=== PATIENT | female | born 1955 | race African-American/Black ===

== ENCOUNTER 2018-06-08 07:47 | Inpatient (IN) ==
--- NOTE | 2018-06-08 08:26 | PROVIDER DOCUMENTATION ---
HPI-Respiratory General - General Chief Complaint: Shortness of Breath Stated Complaint: SOB Time Seen by Provider: 06/08/18 08:09 Source: patient Allergies/Adverse Reactions: Patient Allergies Allergy/AdvReac Type Severity Reaction Status Date / Time No Known Allergies Allergy Verified 08/27/17 11:59 Home Medications: Home Medication List Medication Instructions Recorded Confirmed Last Taken Type Allopurinol [Zyloprim] 100 mg PO BID 08/09/13 05/19/18 08/26/17 16:00 History 100 Insulin Humulin 70/30 [Humulin 15 unit SUBQ BID 08/09/13 05/19/18 08/25/17 History 70/30] 15 Amlodipine [Norvasc] 10 mg PO DAILY 01/19/14 05/19/18 08/26/17 07:00 History 10 Aspirin [Ecotrin] 81 mg PO BID 12/13/15 05/19/18 08/22/17 History Sennosides/Docusate Sodium 1 each PO DAILY 01/22/18 05/19/18 Unknown History [Pericolace] Sodium Bicarbonate 650 mg PO BID 01/22/18 05/19/18 Unknown History D-Methorphan/P-Epd/Bpm [Bromfed Dm 5 ml PO Q4H PRN #120 ml 04/20/18 05/19/18 Unknown Rx Liquid] Clonidine [Catapres] 0.3 mg PO BID 05/19/18 05/19/18 Unknown History Simvastatin 30 mg PO QHS 05/19/18 05/19/18 Unknown History Hydralazine [Apresoline] 100 mg PO TID #90 tab 05/22/18 Unknown Rx Metoprolol Succinate [Toprol Xl] 25 mg PO DAILY #30 tab.er.24h 05/22/18 Unknown Rx - History of Present Illness-Resp Quality of Pain: reports: none Severity in ED: reports: moderate Onset/Duration: reports: gradual, 1 week ago Timing: reports: still present Context: denies: recent foreign travel, insect bite (possible tick), recent chemotherapy Exposure: denies: smoke exposure Cough Quality/Degree: reports: dry cough Similar Symptoms Previously?: Yes Recently seen or treated by another doctor?: Yes (RECENT ADMITTED FOR RESPIRATORY INFECTION) Review of Systems - Adult - REVIEW OF SYSTEMS - ADULT Constitutional: denies: fever, night sweats Eyes: reports: no symptoms reported Ears, Nose, Mouth & Throat: reports: no symptoms reported Cardiovascular: reports: heart murmur, orthopnea Respiratory: reports: shortness of breath. denies: wheezing Gastrointestinal: reports: no symptoms reported Genitourinary: reports: no symptoms reported Musculoskeletal: reports: no symptoms reported Integumentary: reports: no symptoms reported Neurological: reports: no symptoms reported Psychiatric: reports: no symptoms reported Endocrine: reports: no symptoms reported Hematologic/Lymphatic: reports: no symptoms reported Allergic/Immunologic: reports: no symptoms reported Past History - Adult - PAST MEDICAL HISTORY-ADULT Review of Records: reports: Nursing Assessment Review Major Childhood Illnesses: reports: denies history Cardiovascular: reports: CHF, HTN Respiratory: reports: denies history Gastrointestinal: reports: denies history Obstetrical/Gynecological: reports: denies history Genitourinary: reports: ESRD, kidney disease Musculoskeletal: reports: arthritis Neurological: reports: denies history Endocrine/Immune: reports: Diabetes Other Conditions: reports: denies history - PRIOR SURGERIES/PROCEDURES Surgical/Procedure History: reports: BTL - IMMUNIZATION STATUS Childhood Immunizations: See Nurse Assessment Flu Vaccine: See Nurse Assessment - FAMILY HISTORY Family History: reviewed, not pertinent Physical Exam-General - PHYSICAL EXAM-ADULT Initial Vital Signs Reviewed: Yes - CONSTITUTIONAL General Appearance: alert - EYES Eyes: PERRL/EOMI - HEAD, EARS, NOSE, MOUTH & THROAT HENMT: normocephalic/atraumatic - NECK Neck: non-tender, normal inspection - RESPIRATORY Respiratory: no respiratory distress, no accessory muscle use. negative: stridor, wheezing - CARDIOVASCULAR Cardiovascular: no JVD, systolic murmur - GASTROINTESTINAL (ABDOMEN) Abdominal Exam: non tender, soft - LYMPHATIC Lymphatic: no adenopathy - MUSCULOSKELETAL Back Exam: no CVA tenderness Extremity: pedal edema - SKIN Integumentary: warm/dry - NEUROLOGIC Neurologic: grossly normal, no motor/sensory deficits - PSYCHIATRIC Psych/Mental Status: normal mood/affect Progress - PLAN OF CARE/RESULTS Progress/Plan/Lab Results: Vital Signs - 8 hr 06/08/18 07:50 06/08/18 08:02 06/08/18 08:08 Temperature 97.8 F Pulse Rate 79 75 Respiratory Rate 28 H 28 H Blood Pressure 136/109 207/103 O2 Sat by Pulse Oximetry 91 L 92 L Laboratory Results - last 24 hr 0106/08/18 06/08/18 08:40 09:00 09:00 WBC RBC Hgb Hct MCV MCH MCHC RDW Std Deviation Plt Count MPV Immature Gran % (Auto) Neut % (Auto) Lymph % (Auto) Livingston % (Auto) Eos % (Auto) Baso % (Auto) Immature Gran # (Auto) Neut # (Auto) Lymph # (Auto) Livingston # (Auto) Eos # (Auto) Baso # (Auto) Specimen Type ARTERIAL Sample Site R RADIAL pH 7.29 L pCO2 47 H pO2 86 HCO3 21.8 Base Excess -3.9 L Oxyhemoglobin 93.1 L ABG O2 Sat (Calculated) 12.0 L ABG O2 Saturation 95.1 ABG Carboxyhemoglobin 1.30 ABG Methemoglobin 0.7 Andrews Test YES A-a O2 Difference 83.0 Total Hemoglobin 9.1 L Lactate 0.50 Liter Flow 3.0 Blood Gas Modality CANNULA FiO2 % 32.0 Sodium 144 Potassium 5.5 H Chloride 113 H Carbon Dioxide 20 L Anion Gap 11 BUN 55 H Creatinine 4.0 H Estimated GFR/1.73 m2 11 BUN/Creatinine Ratio 14 Glucose 156 H Calculated Osmolality 305 Calcium 9.3 Total Bilirubin 0.40 AST 30 ALT 42 H Alkaline Phosphatase 162 H Lkp-[id number]-Dsqcaujhrls Pept 1896 H Total Protein 7.3 Albumin 3.7 Globulin 4.0 Albumin/Globulin Ratio 1.0 Plasma Lactate 06/08/18 06/08/18 09:00 09:25 WBC 9.57 RBC 2.97 L Hgb 8.6 L Hct 28.3 L MCV 95.3 MCH 29.0 MCHC 30.4 L RDW Std Deviation 17.3 H Plt Count 241 MPV 9.5 Immature Gran % (Auto) 0.5 Neut % (Auto) 79.0 H Lymph % (Auto) 14.6 L Livingston % (Auto) 3.1 Eos % (Auto) 2.7 Baso % (Auto) 0.1 Immature Gran # (Auto) 0.05 H Neut # (Auto) 7.55 H Lymph # (Auto) 1.40 Livingston # (Auto) 0.30 Eos # (Auto) 0.26 Baso # (Auto) 0.01 Specimen Type Sample Site pH pCO2 pO2 HCO3 Base Excess Oxyhemoglobin ABG O2 Sat (Calculated) ABG O2 Saturation ABG Carboxyhemoglobin ABG Methemoglobin Andrews Test A-a O2 Difference Total Hemoglobin Lactate Liter Flow Blood Gas Modality FiO2 % Sodium Potassium Chloride Carbon Dioxide Anion Gap BUN Creatinine Estimated GFR/1.73 m2 BUN/Creatinine Ratio Glucose Calculated Osmolality Calcium Total Bilirubin AST ALT Alkaline Phosphatase [id number] Pept Total Protein Albumin Globulin Albumin/Globulin Ratio Plasma Lactate 0.9 Orders Category Date Time Status Saline Loc NOW Care 06/08/18 08:21 Active CHEST-2 VIEWS [RAD] Stat Exams 06/08/18 08:21 Completed ABG [RESP] Routine Lab 06/08/18 08:40 Completed BLOOD CULTURE [BLDCUL] Stat Lab 06/08/18 09:00 Ordered CBC WITH DIFF [HEME] Stat Lab 06/08/18 09:00 Completed COMPREHENSIVE METABOLIC PANEL [CHEM] Stat Lab 06/08/18 09:00 Completed LACTATE, PLASMA [CHEM] Stat Lab 06/08/18 09:25 Completed PRO B-NATRIURETIC PEPTIDE Stat Lab 06/08/18 09:00 Completed Furosemide [Lasix] Med 06/08/18 10:17 Discontinued 20 mg IV NOW ONE Pulse Oximetry Stat Oth 06/08/18 08:21 Active Result Diagrams: 06/08/18 09:00 06/08/18 09:00 - CONSULTS/PCP/HOSPITALIST Notification #1 *Consult/PCP/Hospitalist*: Dr Salvador Time Discussed: 10:14 Consult Disposition: other (Dr Salvador wanted patient to go to [place], he will follow up with patient) #2 Consult: angelica Time Discussed: 10:34 Reason/Comments: accepted patient to [place] Departure - Departure Date of Disposition Decision: 06/08/18 Time of Disposition Decision: 10:17 DIAGNOSIS: CHF (congestive heart failure), Kidney disease, chronic, stage IV (GFR 15-29 ml /min), Dyspnea, Hypoxia Disposition: ADMITTED INPATIENT 09 Certified Medical Emergency: Emergent Condition: Fair Referrals and Follow-Ups: Deuce Laurent MD [Primary Care Provider] - - Critical Care Note This patient required my direct & personal management of CC.: No Attestation - Physician/ LUCAS Attestation Patient care was provided by Advanced Practice Provider:: No The physician spent face to face time with patient:: Yes Advanced Practice Provider documentation review:: Supervising physician onsite and consulted in the evaluation and care of this patient. The physician did have a face to face encounter with the patient.
--- NOTE | 2018-06-08 08:47 | Diag Imaging Result Doc PS360 ---
EXAM: CHEST-2 VIEWS HISTORY: cough TECHNIQUE: Chest two views COMPARISON: 05/18/2018 FINDINGS: The lungs are well expanded. The heart remains markedly enlarged. Interval development of infiltrates with a tiny right pleural effusion. No consolidation. IMPRESSION: 1.Stable marked cardiomegaly 2.Interval development of infiltrates Electronically signed by Alen Rosen 06/08/2018 8:44 AM
[2018-06-08 09:07] LABS: BE -3.9 mmoll (-3.0-3.0); BLOOD TYPE ARTERIAL; HCO3-(ACT) 21.8 mmoll (20.0-26.0); METHB 0.7 % (0.0-1.5); O2HB 93.1 % (95.0-99.0); PCO2(98.6) 47 mmHg (35-45); PO2(98.6) 86 mmHg (60-100); SAMPLE BLOOD; SAO2 95.1 % (95.0-100.0); THB 9.1 g/dL (11.5-17.4); pH(98.6) 7.29 (7.35-7.45)
[2018-06-08 09:09] LABS: MODALITY CANNULA
[2018-06-08 09:10] LABS: ALLEN TEST YES
[2018-06-08 09:14] LABS: BASO# 0.01 X1000 (0.0-0.2); BASO% 0.1 % (0.0-0.8); EOS# 0.26 X1000 (0.0-0.7); EOS% 2.7 % (0.0-10.0); HEMATOCRIT 28.3 % (37.0-47.0); HEMOGLOBIN 8.6 g/dL (12.0-16.0); IMM GRAN# 0.05 X1000 (0.0-0.04); IMM GRAN% 0.5 % (0.0-0.5); LYMPH% 14.6 % (20.5-51.1); MCHC 30.4 g/dL (33-37); MCV 95.3 FL (81-99); MONO% 3.1 % (1.7-9.3); MPV 9.5 FL (7.4-10.4); NEUT# 7.55 X1000 (1.4-6.5); PLT 241 X1000 (130-400); RBC 2.97 XMIL (4.2-5.4); RDW 17.3 % (11.5-14.5); WBC 9.57 X1000 (4.8-10.8)
[2018-06-08 09:52] LABS: ALBUMIN 3.7 g/dL (3.5-5.0); CALCIUM 9.3 mg/dL (8.8-10.2); POTASSIUM 5.5 mmol/L (3.5-5.1); TOTAL BILIRUBIN 0.4 mg/dL (0.20-1.00); TOTAL PROTEIN 7.3 g/dL (6.3-8.3)
[2018-06-08] MEDS ORDERED: LASIX IV ONE ×2 (10:17→12:01)
--- NOTE | 2018-06-08 12:48 | HISTORY AND PHYSICAL ---
CHIEF COMPLAINT: Shortness of breath. HISTORY OF PRESENT ILLNESS: This is a 63-year-old female who has a history of chronic kidney disease with a baseline creatinine of 3.5 to 4, diabetes mellitus type 2, hypertension, and anemia of chronic disease. She presents to the emergency room complaining of increasing shortness of breath and lower extremity edema over the past 2 to 3 weeks. She states she was discharged from the hospital on May 22. At this time she states she has not had Lasix since discharge. She stated that symptoms began 4 to 5 days after discharge and have slowly progressed. She does complain she has a nonproductive cough. She denies any chest pain, palpitations, any fever or chills. She does report 45 degree orthopnea over the last 2 to 3 days. PAST MEDICAL HISTORY: 1. Chronic kidney disease stage 4. 2. Diabetes mellitus type 2. 3. Hypertension. 4. Anemia of chronic disease. PAST SURGICAL HISTORY: Left arm AV shunt placement and bilateral tubal ligation. SOCIAL HISTORY: She lives with family. She denies any alcohol, tobacco, or illicit drug use. ALLERGIES: No known drug allergies. HOME MEDICATIONS: A list will be obtained by the nursing staff and once verified we will review and restart as appropriate. REVIEW OF SYSTEMS: Discussed with patient with pertinent positives stated in the HPI. She denied any syncope, dizziness, chest pain, palpitations, a productive cough, any fever, chills, night sweats, any nausea, vomiting, diarrhea, constipation, black or bloody vomitus or stools, any hematuria, dysuria, frequency, urgency. PHYSICAL EXAMINATION: GENERAL: This is a 63-year-old female who is sitting up on the stretcher in the emergency room in no distress. VITAL SIGNS: Blood pressure is 186/92 with a heart rate of 68, respirations are 20. O2 saturation are 96-98% on 2 L nasal cannula. Temperature is 98.1 degrees oral. EYES: Pupils are equal, round, react to light. EOMs are intact. Sclerae are anicteric. HEENT: Head is normocephalic, atraumatic. Mucous membranes are moist. NECK: Supple with trachea midline. CARDIOVASCULAR: Regular rate and rhythm. S1 and S2 appreciated. She does have bilateral lower extremity edema from about midthigh down. Of note she does have a history lymphadenopathy. PULMONARY: Breath sounds with wheezes scattered throughout. Chest rises and falls symmetrically with respiration. GASTROINTESTINAL: Abdomen is soft, nontender, nondistended with bowel sounds in all 4 quadrants. GENITOURINARY: She has no CVA nor suprapubic tenderness. NEUROLOGIC: She is alert oriented x3. LABS: WBC is 9.5 with hemoglobin 8.6, hematocrit 28.3, and platelets of 241,000. Sodium 144, potassium 5.5, BUN is 55, with creatinine of 4 and glucose of 156. ProBNP is 1896. Blood cultures x 2 are pending. Chest x-ray revealed stable marked cardiomegaly with interval development of infiltrate. ASSESSMENT AND PLAN: 1. Dyspnea. 2. Chronic kidney disease stage 4 with a baseline creatinine of 3.5 to 4. She has a left arm AV shunt in place with bruit audible and thrill palpable. 3. Volume overload. The patient has been off her Lasix for approximately 3 weeks. We will give IV Lasix, monitor I O and will consult Dr. Sevilla. 4. Diabetes mellitus. She will be placed on pattern blood glucose with sliding scale insulin. We will identify her home medications and continue these as appropriate. 5. Hypertension. We will continue with diuresis. We will identify her home medications and continue. 6. Anemia of chronic disease. We will monitor daily labs. Dictated by JA Garcia for Jackson Jacome MD This chart was documented by, JA Garcia and accurately reflects the services performed, treatment plan and medical decisions as attested by the providers signature Jackson Jacome MD. cc: JA Garcia MD
[2018-06-08] MEDS ORDERED: ZOFRAN IV PRN (14:54)
--- NOTE | 2018-06-08 15:24 | HISTORY AND PHYSICAL ---
The patient was seen by me face to face and I fully agree with the assessment/plan of the nurse practitioner Harika Meade. This is a 63-year-old female patient of Dr. Deuce Laurent who presented to the emergency department with dyspnea and has been diagnosed as having stage 4 chronic kidney disease. She already has a left arm AV graft in place for anticipated hemodialysis. Dr. Sevilla has been consulted and he wants patient to be transferred to [facility] for further inpatient care. The patient has diabetes and hypertension along with anemia secondary to chronic kidney disease. She appears to be having volume overload and would need to be diuresed and possibly have inpatient hemodialysis if needed. Further care will be provided as per Dr. Sevilla. She therefore will be transferred to [facility] for further multispecialty care. cc: Jackson Jacome MD
[2018-06-08] MEDS: HUMALOG SUBQ SCH ×2 (16:30→20:57)
[2018-06-08 16:45] LABS: URINE SOURCE VOIDED
[2018-06-08 16:51] LABS: BILIRUBIN URINE NEGATIVE (NEGATIVE); BLOOD URINE TRACE (NEGATIVE); COLOR STRAW; GLUCOSE URINE NEGATIVE (NEGATIVE); KETONE URINE NEGATIVE (NEGATIVE); LEUKOCYTES URINE NEGATIVE (NEGATIVE); NITRITE URINE NEGATIVE (NEGATIVE); PH URINE 6.5; PROTEIN URINE 100 mg/dL (NEGATIVE); TURBIDITY URINE CLEAR (CLEAR); UR EPITHELIAL CELLS <10 /HPF (<10); URINE BACTERIA NEGATIVE /HPF; URINE RBC <10 /HPF (<10); URINE WBC <10 /HPF (<10); UROBILINOGEN URINE NORMAL (NORMAL)
[2018-06-08 16:57] LABS: UR CREAT RANDOM 19.5 mg/dL (11-20); UR PROT RANDOM 131.5 mg/dL
[2018-06-08] MEDS ORDERED: APRESOLINE PO PRN (18:54)
--- NOTE | 2018-06-08 19:31 | PROGRESS NOTE ---
DATE: 06/08/2018 SUBJECTIVE: She was admitted early this morning for shortness of breath. She is followed by Dr. Tripathi. A 63-year-old with history of chronic kidney disease. Baseline creatinine 3.5 to 4, diabetes mellitus, hypertension, anemia of chronic disease. Presented to the emergency department complaining of shortness of breath and lower extremity edema over the past 2 or 3 weeks. She had been discharged from [facility] on May 22. She states she has not had any Lasix since discharge. Symptoms began about 4 or 5 days after discharge and progressively got more short of breath. She does complain that she has a nonproductive cough. Denies any chest pain or palpitations. PAST MEDICAL HISTORY: 1. Chronic kidney disease. 2. Diabetes mellitus type 2. 3. Hypertension. 4. Anemia of chronic disease. PAST SURGICAL HISTORY: Left arm AV shunt placement, bilateral tubal ligation. ASSESSMENT AND PLAN: 1. So, admitted with dyspnea, chronic kidney disease stage 4 with baseline creatinine 3.5 to 4. She has left arm AV shunt with a bruit which is audible and thrills palpable , but presented with volume overload. She has been off her Lasix for 3 weeks. So, started back on some Lasix. Dr. Sevilla is following. 2. Diabetes mellitus type 2. Sugars continue patterned sugars sliding scale. 3. Watch her blood pressure. Blood pressures are variable at 136/109, then 203/ 73. 4. Anemia of chronic disease. 5. Reviewed orders. I will give her some p.r.n. Apresoline for blood pressure. Check another chest x-ray in the morning. cc: MD MAXIMILIANO Bloom
[2018-06-08] MEDS: CATAPRES PO SCH (20:55)
[2018-06-08] MEDS: APRESOLINE IV PRN (22:07)
[2018-06-09] MEDS: APRESOLINE IV PRN ×2 (03:51→20:27)
[2018-06-09] MEDS: HUMALOG SUBQ SCH ×3 (06:00→20:40)
[2018-06-09 07:36] LABS: HEMATOCRIT 28.8 % (37.0-47.0); HEMOGLOBIN 8.6 g/dL (12.0-16.0); MCH 28.6 PG (27-31); MCHC 29.9 g/dL (33-37); MCV 95.7 FL (81-99); MPV 10.5 FL (7.4-10.4); RBC 3.01 XMIL (4.2-5.4); WBC 7.81 X1000 (4.8-10.8)
[2018-06-09 07:57] LABS: ALBUMIN 3.5 g/dL (3.5-5.0); CALCIUM 9.3 mg/dL (8.8-10.2); CREATININE 3.4 mg/dL (0.5-0.9); PHOSPHORUS 4.8 mg/dL (2.7-4.5); POTASSIUM 5.4 mmol/L (3.5-5.1)
[2018-06-09] MEDS: TOPROL XL PO SCH (08:15)
[2018-06-09] MEDS: NORVASC PO SCH (08:15)
[2018-06-09] MEDS: APRESOLINE PO SCH ×3 (08:15→20:27)
[2018-06-09] MEDS: CATAPRES PO SCH ×2 (08:15→20:27)
--- NOTE | 2018-06-09 08:43 | Diag Imaging Result Doc PS360 ---
EXAM: CHEST-PORTABLE HISTORY: dyspnea TECHNIQUE: Portable chest single view COMPARISON: 06/08/2018 FINDINGS: The heart remains enlarged. The infiltrates are less pronounced. No consolidation. No pleural effusions identified. IMPRESSION: Mild interval improvement. Electronically signed by Alen Rosen 06/09/2018 8:41 AM
[2018-06-09] MEDS: LABETALOL IV PRN (09:59)
[2018-06-09] MEDS ORDERED: LASIX IV ONE (13:16)
[2018-06-09] MEDS ORDERED: LASIX 200 MG in NS 25 ML IV ONE (14:00)
--- NOTE | 2018-06-09 20:16 | GENERAL SURGERY CONSULTATION ---
DATE: 06/09/2018 DATE AND TIME: Date 06/09/2018, is 2:04 p.m. INDICATION: I have been asked to see Ms. Rodriguez about her left upper arm AV access. HISTORY OF PRESENT ILLNESS: She is a 63-year-old who has had chronic kidney disease, but now may have reached end stage. A fistula was placed a couple of years ago in her left upper arm. I have been asked to evaluate that. Her other medical problems Include type 2 diabetes, hypertension. PREVIOUS SURGERIES: Previous surgery includes the left upper arm fistula and a tubal ligation. SOCIAL HISTORY: She has an attentive family. Denies alcohol or tobacco usage. MEDICATIONS: Her home medications are listed. ALLERGIES: She has no known drug allergies. REVIEW OF SYSTEMS: Really quite unremarkable except for some fatigue. PHYSICAL EXAMINATION: Vital Signs: She is afebrile. Heart rate is 75, blood pressure 152/67. Lungs: Bilateral breath sounds. Heart: Regular rate and rhythm. Exam: Her left upper arm is palpated. She has a palpable thrill in the left upper arm. She has a long scar, but we mobilized the cephalic vein and translocated it to the brachial artery. ASSESSMENT: Chronic kidney disease. Her fistula in the upper arm is functional. It may not be in exactly typical position because of the size of her arm. We actually superficialized the cephalic vein and translocated it over the brachial artery. PLAN: The plan will be to image her fistula and sean it for the dialysis nurse so that they can use it if needed. cc: Eliseo Nguyen MD
[2018-06-09] MEDS: HEPARIN SUBQ SCH (20:27)
--- NOTE | 2018-06-09 21:33 | NEPHROLOGY CONSULTATION ---
DATE: 06/09/2018 REASON FOR ADMISSION: Increased work of breathing with lower extremity swelling. CONSULTING PHYSICIAN: Harika Meade NP for Dr. Jacome. REASON FOR CONSULT: Acute kidney injury with fluid volume overload on CKD stage 5. HPI: Ms. Rodriguez is a 63-year-old female who is known to our outpatient services for chronic kidney disease stage 5. Her baseline creatinine is 3.5 to about 4.5 over the last year. The patient had been referred for an AV fistula which had been placed by Dr. Nguyen to her left upper arm. She states that she is to see him in June. She presented to [facility] yesterday with increased shortness of breath and lower extremity swelling for the past 2 to 3 weeks. She had recently been discharged from the hospital on May 22 and at that time her Lasix had been stopped. She has been given Lasix 40 mg x1 with Lasix 20 mg x1 with a total of 60 yesterday prior to transfer to [facility] for further evaluation and possible dialysis. She states that she has not had any fever or chills. No nausea, vomiting or diarrhea though her appetite is poor. Positive for lower extremity swelling, positive for increased work of breathing. She does state that she has a cough though it is nonproductive. PAST MEDICAL HISTORY: Chronic kidney disease stage 4-5, diabetes mellitus type 2, hypertension, anemia of chronic disease, osteodystrophy of chronic disease. PAST SURGICAL HISTORY: Left upper arm AV fistula and bilateral tubal ligation. SOCIAL HISTORY: She lives with her family. She denies any tobacco, alcohol or illicit drug use. FAMILY HISTORY: She does have family members with hypertension, diabetes and with chronic kidney disease. CURRENT ALLERGIES: No known drug allergies . HOME MEDICATIONS: Have yet to be verified this a.m. REVIEW OF SYSTEMS: Times 10 with pertinent positives listed above in the HPI. Patient's most recent vital signs temperature 98.2 degrees, blood pressure 182/ 84, heart rate 73, respirations 18, she is on room air. Last recorded saturation 100%, she has had 0 recorded in, she has had 2400 out to void. LAB: Sodium 146, potassium 5.4, chloride 113, CO2 21, BUN 58, creatinine 3.4, glucose 122, her anion gap is 12, calcium 9.3, phosphorus 4.8, albumin 3.5, white count 7.8, hemoglobin 8.6, hematocrit 28.8, platelet count 242,000. PHYSICAL EXAM: This is a 63-year-old female. She is resting quietly in bed. Head of the bed is elevated. She is in no acute distress.Skin: Warm and dry. HEENT: Normocephalic, atraumatic. She does have positive JVD in the upright position. Lungs: Basically clear to auscultation anterior. She has faint crackle to the right lower base. She remains on room air. Abdomen: Large, obese, soft, nontender. Positive bowel sounds. Genitourinary: Not inspected. Patient has been voiding adequate amount. Extremities: She continues with 2+ lower extremity edema. Her left upper arm AV fistula has poor palpable thrill with decreased bruit, dry and intact, well-approximated. No clubbing or cyanosis present to lower extremities. Neurological: She is alert and oriented x3. ASSESSMENT AND PLAN: 1. Acute kidney injury on chronic kidney disease stage 4-5. Patient has an arteriovenous fistula to her left upper arm, it has poor palpable thrill. We will consult her surgeon Dr. Nguyen to evaluate the patency of this fistula for possible use during this hospitalization. 2. Elevated BUN and creatinine. Patient has received Lasix though her creatinine has remained stable. 3. Electrolytes and acid-base balance. She has mild hyperkalemia secondary to # 1. 4. Anemia. This is low but stable. 5. Fluid volume overload with increased work of breathing. Patient received 60 mg of Lasix yesterday. She is currently on room air. She has no acute respiratory distress present. She does continue with edema to her lower extremities. We evaluate whether to give her larger doses of Lasix or possible start for dialysis if indicated during her hospital stay. Like to thank you for allowing us to follow with this patient. Dictated by JA Franks for Renzo Sevilla MD Face to face encounter, data reviewed, discussed with Beth Elliott on 06/09/18. I agree with the above assessment and plan of care. cc: JA Franks MD [facility]
--- NOTE | 2018-06-09 22:55 | PROGRESS NOTE ---
DATE: 06/09/2018 SUBJECTIVE: The patient is resting comfortably in bed. She complains of shortness of breath whenever she tries to get up to use the bedside commode. She also has significant swelling in her extremities. OBJECTIVE: Vital Signs: Temperature 97.5 degrees, blood pressure 172/75, heart rate 66, respirations 22, O2 saturation 100% on 4 L nasal cannula. General: This is a morbidly obese female, lying in bed, in no acute distress. Head: Normocephalic, atraumatic. Neck: Positive for JVD. Heart: S1, S2 normal. Regular rate and rhythm. Lungs: Equal air entry bilaterally. Diminished breath sounds at the bases. Abdomen: Positive bowel sounds. Soft, obese. Nontender, nondistended. Extremities: 2+ edema. Neurologic: The patient is alert and oriented x3. LABORATORIES: White blood cell count 7.8, hemoglobin 8.6, hematocrit 28, platelets 242,000. Sodium 146, potassium 5.4, chloride 113, CO2 of 21, BUN 58, creatinine 3.4, glucose 122. Phosphorus 4.8. Albumin 3.5. IMAGING STUDIES: Chest x-ray shows mild interval improvement. No consolidations. ASSESSMENT AND PLAN: 1. Fluid overload with diastolic congestive heart failure exacerbation. The patient received a high dose of Lasix this afternoon. We will monitor her response closely. We will also place the patient on a fluid restriction. 2. Chronic kidney disease stage IV to V. The patient has been challenged with a high dosage of Lasix. We will monitor her response closely. Further recommendations to follow from the boil off machine operator cloth. 3. Mild hyperkalemia. We will monitor this closely. 4. Metabolic acidosis. This is likely secondary to the patient's renal failure. 5. Morbid obesity. Aware. 6. Hypertension, uncontrolled. We will continue on the current antihypertensive regimen. Hopefully, as the patient's volume status improves, her blood pressure will also improve. 7. Constipation. We will start the patient on scheduled laxative therapy. 8. Hypernatremia. We will monitor this closely. 9. Hyperphosphatemia. We will continue to monitor. 10. Diabetes mellitus type 2. Continue with sliding scale insulin. 11. Deep vein thrombosis prophylaxis. We will start the patient on heparin. cc: Felicita Moya MD
[2018-06-10] MEDS ORDERED: TYLENOL PO PRN (02:59)
[2018-06-10] MEDS: HEPARIN SUBQ SCH ×2 (05:44→14:36)
[2018-06-10] MEDS: APRESOLINE IV PRN (05:48)
[2018-06-10] MEDS: HUMALOG SUBQ SCH ×2 (06:15→12:36)
[2018-06-10 07:32] LABS: HEMATOCRIT 27.8 % (37.0-47.0); HEMOGLOBIN 8.1 g/dL (12.0-16.0); MCHC 29.1 g/dL (33-37); MCV 96.2 FL (81-99); MPV 10.1 FL (7.4-10.4); RBC 2.89 XMIL (4.2-5.4); RDW 17.3 % (11.5-14.5); WBC 7.42 X1000 (4.8-10.8)
[2018-06-10 08:07] LABS: ALBUMIN 3.3 g/dL (3.5-5.0); CALCIUM 8.6 mg/dL (8.8-10.2); CREATININE 3.9 mg/dL (0.5-0.9); PHOSPHORUS 5.2 mg/dL (2.7-4.5); POTASSIUM 5.5 mmol/L (3.5-5.1)
--- NOTE | 2018-06-10 08:47 | VASCULAR LAB ---
DATE: 06/09/2018 PROCEDURE: Left upper extremity dialysis access ultrasound. TURRET PUNCH OPERATOR: Shweta. REQUESTING PHYSICIAN: DR. Nguyen. INDICATIONS: This is a translocated fistula marking the course for dialysis nurse. FINDINGS: In the left, translocated brachiocephalic arteriovenous fistula is patent, pulsatile flow, and was marked at the skin level for the technologist to access. cc: MD Eliseo Juan MD
[2018-06-10 10:59] LABS: ALLEN TEST YES; BE -4.3 mmoll (-3.0-3.0); BLOOD TYPE ARTERIAL; HCO3-(ACT) 21.4 mmoll (20.0-26.0); METHB 0.4 % (0.0-1.5); PCO2(98.6) 48 mmHg (35-45); PO2(98.6) 57 mmHg (60-100); SAMPLE BLOOD; THB 11.4 g/dL (11.5-17.4); pH(98.6) 7.28 (7.35-7.45)
[2018-06-10] MEDS: CATAPRES PO SCH (11:00)
[2018-06-10] MEDS: APRESOLINE PO SCH ×2 (11:00→14:36)
[2018-06-10] MEDS: TOPROL XL PO SCH (11:00)
[2018-06-10] MEDS: NORVASC PO SCH (11:00)
[2018-06-10 11:01] LABS: MODALITY ROOM AIR; O2HB 87.3 % (95.0-99.0)
[2018-06-10] MEDS: LABETALOL IV PRN (11:47)
[2018-06-10 12:34] VITALS: BP 160/67
--- NOTE | 2018-06-10 13:28 | NEPHROLOGY PROGRESS NOTE ---
DATE: 06/10/2018 SUBJECTIVE: She feels much better today. She is eating her breakfast. No shortness of breath, nausea, or vomiting. Swelling is improved, but still present. OBJECTIVE: Vital Signs: Blood pressure 160/67, heart rate 67, respirations 20, afebrile. General: No acute distress. Skin: Warm and dry. HEENT: Conjunctivae are pink. Neck: Neck veins are not distended. Heart: Regular. No gallops. Lungs: Equal. No crackles. Abdomen: Soft, nontender. Bowel sounds present. Extremities: 1+ edema. No clubbing or cyanosis. IMPRESSION: Chronic kidney disease stage 5. Her kidney function is really at her historical baseline. She has modest hyperkalemia, but does not necessitate dialysis. Her blood pressure remains very difficult to control. She is really on maximum therapy. The only other alternative would be to change her vasodilator to minoxidil, but given her problem with swelling already, I am reluctant to make this change. She can go back to furosemide 80 in the morning and 40 in the afternoon, and follow with us in the office. We will follow her monthly. cc: Renzo Sevilla MD
== END 2018-06-10 15:41 | disposition home health service (06) | DRG 291 ==
LOC: P.ED 07:47 → 4N 12:36 → SUATTDRO 12:36
PROVIDERS: ATTEND Internal Medicine
CPT/HCPCS: 71010; 71020; 71045; 71046; 80053; 80069; 81001; 82570; 82805; 82948; 83605; 83880; 84156; 84300; 85025; 85027; 87040; 93990; 94761; 94799; 96374; 96376; 99285; A9270; J0360; J1644; J1815; J1940; XXXXX

== ENCOUNTER 2018-08-01 16:15 | Inpatient (IN) ==
[2018-08-01 17:25] LABS: BILIRUBIN URINE NEGATIVE (NEGATIVE); BLOOD URINE TRACE (NEGATIVE); CLARITY CLEAR (CLEAR); COLOR YELLOW; KETONE URINE NEGATIVE (NEGATIVE); LEUKOCYTES URINE NEGATIVE (NEGATIVE); NITRITE URINE NEGATIVE (NEGATIVE); PROTEIN URINE 2+(100 mg/dL) mg/dL (NEGATIVE); SP GRAVITY URINE 1.005; UROBILINOGEN URINE NORMAL
[2018-08-01 17:36] LABS: URINE BACTERIA 1+ /HFP; URINE CAST NONE SEEN /LPF; URINE CRYSTAL NONE SEEN /HPF; URINE EPITHELIAL CELLS <10 /HPF (<10); URINE RBC <10 /HPF (<10); URINE SOURCE CLEAN CATCH; URINE WBC <10 /HPF (<10); URINE YEAST NONE SEEN /HPF
[2018-08-01 17:46] LABS: BASO# 0.01 X1000 (0.0-0.2); BASO% 0.1 % (0.0-0.8); EOS# 0.33 X1000 (0.0-0.7); EOS% 4.3 % (0.0-10.0); HEMATOCRIT 29.9 % (37.0-47.0); IMM GRAN# 0.07 X1000 (0.0-0.04); IMM GRAN% 0.9 % (0.0-0.5); LYMPH# 1.49 X1000 (1.2-3.4); LYMPH% 19.3 % (20.5-51.1); MCH 28.4 PG (27-31); MCHC 30.1 g/dL (33-37); MCV 94.3 FL (81-99); MONO# 0.27 X1000 (0.11-0.59); MONO% 3.5 % (1.7-9.3); MPV 12.4 FL (7.4-10.4); NEUT# 5.57 X1000 (1.4-6.5); NEUT% 71.9 % (42.2-75.2); PLT 178 X1000 (130-400); RBC 3.17 XMIL (4.2-5.4); RDW 18.3 % (11.5-14.5); WBC 7.74 X1000 (4.8-10.8)
[2018-08-01 18:05] LABS: CALCIUM 9.7 mg/dL (8.8-10.2); CREATININE 3.8 mg/dL (0.5-0.9); POTASSIUM 5.2 mmol/L (3.5-5.1); TOTAL BILIRUBIN 0.5 mg/dL (0.20-1.00); TOTAL PROTEIN 7.6 g/dL (6.3-8.3)
[2018-08-01 18:05] LABS: INFLUENZA A NEGATIVE (NEGATIVE); INFLUENZA B NEGATIVE (NEGATIVE)
--- NOTE | 2018-08-01 18:37 | Diag Imaging Result Doc PS360 ---
CHEST-PORTABLE - 08/01/2018 INDICATION: HX OF HF; PRESENTS WITH PROGRESSIVE SOB COMPARISON: 07/31/2018 FINDINGS: Stable significant cardiomegaly and pulmonary vascular congestion. No definite pulmonary edema. No large pleural effusion. IMPRESSION: Severe cardiomegaly and pulmonary vascular congestion. Electronically signed by Usama Crow 08/01/2018 6:34 PM
[2018-08-01] MEDS ORDERED: LASIX IV ONE (18:51)
--- NOTE | 2018-08-01 19:01 | PROVIDER DOCUMENTATION ---
This chart was entered by Susanna Gomes Scribe, acting as scribe for Manpreet Jacques MD. HPI-General Adult - General Chief Complaint: Return/Recheck Stated Complaint: CHILLS / WEAK Time Seen by Provider: 08/01/18 17:09 Source: patient Allergies/Adverse Reactions: Patient Allergies Allergy/AdvReac Type Severity Reaction Status Date / Time No Known Allergies Allergy Verified 07/31/18 09:52 Home Medications: Home Medication List Medication Instructions Recorded Confirmed Last Taken Type Allopurinol [Zyloprim] 100 mg PO BID 08/09/13 07/31/18 07/30/18 History Insulin Humulin 70/30 [Humulin 15 unit SUBQ BID 08/09/13 07/31/18 07/30/18 Histo ry 70/30] Amlodipine [Norvasc] 10 mg PO DAILY 01/19/14 07/31/18 07/30/18 History Aspirin [Ecotrin] 81 mg PO BID 12/13/15 07/31/18 07/30/18 History Sodium Bicarbonate 650 mg PO BID 01/22/18 07/31/18 07/30/18 History Clonidine [Catapres] 0.3 mg PO BID 05/19/18 07/31/18 07/30/18 History Simvastatin 30 mg PO QHS 05/19/18 07/31/18 07/30/18 History Hydralazine [Apresoline] 100 mg PO TID #90 tab 05/22/18 07/31/18 07/30/18 Rx Furosemide [Lasix] 40 mg PO DAILY #30 tab 06/10/18 07/31/18 07/30/18 Rx - History of Present Illness -Gen Adult Nature of Presenting Problems: 63 y/o female presents to ED with intermittent chills, fatigue, loss of appetite, worsening SOB, and dyspnea on exertion. Pt reports she has gained 20 lbs over the past month. Pt is on 2L home O2. Pt is alert and oriented. Location of Pain/Injury: reports: generalized Pain Radiation: reports: no radiation Quality of Pain: reports: none Severity: reports: mild Onset/Duration: reports: unsure Timing: reports: still present Context/Activities at Onset: reports: none Modifying Factors: improves with: nothing Associated Symptoms: reports: fatigue, fever/chills, loss of appetite, shortness of breath, other (dyspnea on exertion; weight gain) Similar Symptoms Previously?: No Recently seen or treated by another doctor?: Yes (ED yesterday for same) Review of Systems - Adult - REVIEW OF SYSTEMS - ADULT Constitutional: reports: chills, fatique, weight gain. denies: fever Eyes: reports: no symptoms reported Ears, Nose, Mouth & Throat: reports: no symptoms reported Cardiovascular: reports: other (dyspnea on exertion; states she noticed more shortness of breath with shorter distance compare to before.). denies: chest pain, palpitations Respiratory: reports: dyspnea on exertion, shortness of breath. denies: cough Gastrointestinal: reports: poor appetite. denies: abdominal pain, diarrhea, nausea, vomiting Genitourinary: reports: no symptoms reported Musculoskeletal: denies: back pain, joint pain Integumentary: reports: no symptoms reported Neurological: denies: dizziness/vertigo, seizure Psychiatric: reports: no symptoms reported Endocrine: reports: no symptoms reported Hematologic/Lymphatic: reports: no symptoms reported Allergic/Immunologic: reports: no symptoms reported All Other Systems: Reviewed and Negative Past History - Adult - PAST MEDICAL HISTORY-ADULT Review of Records: reports: Old Records Reviewed, Nursing Assessment Review, Medications Reviewed Major Childhood Illnesses: reports: denies history Cardiovascular: reports: CHF, HTN, hyperlipidemia Respiratory: reports: denies history Gastrointestinal: reports: denies history, GERD Obstetrical/Gynecological: reports: denies history Genitourinary: reports: ESRD, kidney disease Musculoskeletal: reports: arthritis Neurological: reports: denies history, dementia Endocrine/Immune: reports: Diabetes Other Conditions: reports: denies history - PRIOR SURGERIES/PROCEDURES Surgical/Procedure History: reports: BTL, other (shunt in L arm) - IMMUNIZATION STATUS Childhood Immunizations: See Nurse Assessment Flu Vaccine: See Nurse Assessment - FAMILY HISTORY Family History: reviewed, not pertinent - SOCIAL HISTORY Smoking: quit greater than 1 year Substance Use: none/never Alcohol Use Frequency: never Living Situation: family Physical Exam-General - PHYSICAL EXAM-ADULT Initial Vital Signs Reviewed: Yes - CONSTITUTIONAL General Appearance: appears well, alert, no apparent distress - EYES Eyes: PERRL/EOMI, pink conjunctivae - HEAD, EARS, NOSE, MOUTH & THROAT HENMT: normocephalic/atraumatic, moist mucous membranes, normal ENT inspection - NECK Neck: non-tender, full range of motion - RESPIRATORY Respiratory: chest non-tender, lungs clear, normal breath sounds - CARDIOVASCULAR Cardiovascular: normal peripheral pulses, regular rate, rhythm - GASTROINTESTINAL (ABDOMEN) Abdominal Exam: normal bowel sounds, non tender, soft - MUSCULOSKELETAL Back Exam: normal inspection, no CVA tenderness Extremity: normal range of motion, non-tender, normal gait, swelling (1 plus pitting edema of bilateral lower extremities) - SKIN Integumentary: normal color, warm/dry - NEUROLOGIC Neurologic: grossly normal - PSYCHIATRIC Psych/Mental Status: normal mood/affect, normal thought content, normal thought process Progress - PLAN OF CARE/RESULTS Progress/Plan/Lab Results: Vital Signs - 8 hr 08/01/18 16:27 Temperature 96.9 F L Pulse Rate 93 H Respiratory Rate 18 Blood Pressure 190/82 O2 Sat by Pulse Oximetry 95 Orders Category Date Time Status CBC WITH ELECTRONIC DIFF [HEME] Stat Lab 08/01/18 16:30 Ordered COMPREHENSIVE METABOLIC PANEL [CHEM] Stat Lab 08/01/18 16:[address] W/POSS RFLX CULT [URINALYSIS] Stat Lab 08/01/18 16:43 Received Result Diagrams: 08/01/18 17:00 08/01/18 17:00 - REASSESSMENT Reassessment #1 Time Reassessed: 18:53 Status: other (WILL CONSULT HOSPITALIST FOR ADMISSION FOR CHF EXACERBATION IN PATIENT WITH HISTORY OF HEART FAILURE ON DIURETIC CAME IN TODAY WITH PROGRESSIVE DYSPNEA ON EXERTION AND ABOUT 20 TO 30 LB WEIGHT GAIN FOR THE PAST 1 MONTH. PENDING HOSPITALIST RETURN CALL.) Reassessment #2 Time Reassessed: 18:59 Status: other (I HAVE SPOKE TO THE HOSPITALST; APPRECIATE THEIR ASSISTANCE.) - EKG 1 Time of EKG reading by physician:: 17:39 EKG Read and Signed by:: Manpreet Jacques EKG Interpretation (*Must complete 3 of following elements*): Normal Rate: 82 Rhythm: NORMAL SINUS RHYTHM [place]: normal QRS: normal [place] Interval: normal ST Wave: normal Prior EKG Comparison: no prior EKG Departure - Departure Date of Disposition Decision: 08/01/18 Time of Disposition Decision: 18:59 DIAGNOSIS: CHF exacerbation, CKD (chronic kidney disease) stage 4, GFR 15-29 ml/min DIAGNOSIS: (Ruled Out): Malignant essential hypertension with CHF, NYHA class 1 Disposition: ADMITTED INPATIENT 09 Certified Medical Emergency: Emergent Condition: Fair Referrals and Follow-Ups: Deuce Laurent MD [Primary Care Provider] - - Critical Care Note This patient required my direct & personal management of CC.: No Attestation - Physician/ LUCAS Attestation Patient care was provided by Advanced Practice Provider:: No The physician spent face to face time with patient:: Yes Advanced Practice Provider documentation review:: Supervising physician onsite and consulted in the evaluation and care of this patient. The physician did have a face to face encounter with the patient. This chart was documented by the indicated scribe, (Susanna Gomes, Zeb) and accurately reflects the services I performed and decisions made by me, Manpreet Jacques MD, as attested by the provider's signature.
[2018-08-01] MEDS ORDERED: TYLENOL PO PRN (21:58)
[2018-08-01] MEDS ORDERED: ZOFRAN IV PRN (21:58)
[2018-08-01] MEDS: CATAPRES PO SCH (23:08)
[2018-08-01] MEDS: LOVENOX SUBQ SCH (23:08)
[2018-08-02] MEDS: CATAPRES PO SCH ×4 (03:33→22:35)
[2018-08-02 06:08] LABS: BASO# 0.01 X1000 (0.0-0.2); BASO% 0.1 % (0.0-0.8); EOS# 0.33 X1000 (0.0-0.7); EOS% 4.8 % (0.0-10.0); HEMATOCRIT 26.1 % (37.0-47.0); HEMOGLOBIN 7.7 g/dL (12.0-16.0); IMM GRAN# 0.05 X1000 (0.0-0.04); IMM GRAN% 0.7 % (0.0-0.5); LYMPH# 1.15 X1000 (1.2-3.4); LYMPH% 16.6 % (20.5-51.1); MCHC 29.5 g/dL (33-37); MCV 94.9 FL (81-99); MONO# 0.38 X1000 (0.11-0.59); MONO% 5.5 % (1.7-9.3); MPV 10.9 FL (7.4-10.4); NEUT# 4.99 X1000 (1.4-6.5); NEUT% 72.3 % (42.2-75.2); PLT 151 X1000 (130-400); RBC 2.75 XMIL (4.2-5.4); RDW 18.1 % (11.5-14.5); WBC 6.91 X1000 (4.8-10.8)
[2018-08-02 06:27] LABS: CALCIUM 9.3 mg/dL (8.8-10.2); CREATININE 3.7 mg/dL (0.5-0.9); POTASSIUM 5.6 mmol/L (3.5-5.1)
[2018-08-02] MEDS: SODIUM BICARBONATE PO SCH ×2 (09:03→22:34)
[2018-08-02] MEDS: ASPIRIN EC PO SCH ×2 (09:03→22:35)
[2018-08-02] MEDS: LASIX IV SCH ×2 (09:03→22:34)
[2018-08-02] MEDS: ZYLOPRIM PO SCH ×2 (09:03→22:35)
[2018-08-02] MEDS: APRESOLINE PO SCH ×3 (09:03→17:05)
[2018-08-02] MEDS: NORVASC PO SCH (09:04)
--- NOTE | 2018-08-02 11:34 | HISTORY AND PHYSICAL ---
PRIMARY CARE PHYSICIAN: Dr. Laurent. CHIEF COMPLAINT: Shortness of breath - worsened with exertion, decreased appetite, a 20 pound weight gain over the past month, fatigue, and chills. HISTORY OF PRESENTING ILLNESS: This is a 63-year-old, female who presents to [facility] ER with complaints of worsening shortness of breath with exertion, a 20 pound weight gain over the past month, fatigue, decreased appetite, and chills, all of this despite using her home O2 at 2 L via nasal cannula. She was noted to have been in the hospital in May of this year and had an echocardiogram at that time that showed an ejection fraction of 65% with a normal systolic function. She, during her last admission, also had a left arm AV shunt placed as she is a chronic kidney disease stage 4 patient, followed by Dr. Sevilla. Currently, her BUN is 79 with a creatinine of 3.8 which appears to be an improvement from when she was in the hospital in May of this year where she had a creatinine that ranged from 4.[address] up to 5.6. She was admitted for further evaluation and treatment. PAST MEDICAL HISTORY: Chronic kidney disease stage 4, diabetes type 2, hypertension, anemia of chronic disease, congestive heart failure, and hyperlipidemia. PAST SURGICAL HISTORY: Left arm AV shunt and a bilateral tubal ligation. FAMILY HISTORY: Reviewed and noncontributory. SOCIAL HISTORY: She currently lives with family. Denies any tobacco, alcohol, or illicit drug use. ALLERGIES: She has no known drug allergies. HOME MEDICATIONS: We will hold her Lasix 40 mg p.o. daily and we will hold her Humulin 70/30 with 15 units subcutaneous b.i.d. We will continue her allopurinol 100 mg p.o. b.i.d., Norvasc 10 mg p.o. daily, Ecotrin 81 mg p.o. b.i.d., clonidine 0.3 mg p.o. b.i.d., hydralazine 100 mg p.o. t.i.d., simvastatin 20 mg p.o. at bedtime, and sodium bicarbonate 650 mg p.o. b.i.d. LABORATORY DATA: Showed a white blood cell count of 7.74, hemoglobin 9, hematocrit 29.9, platelets 178,000. Sodium 149, potassium 5.2, chloride 108, CO2 26, BUN of 79, creatinine 3.8, glucose 226, magnesium 1.9. ProBNP of 2717 which is worse than when she was here in May at 1896. Urinalysis was negative except for 1+ bacteria. Influenza A and B were both negative. Chest x-ray showed severe cardiomegaly and pulmonary vascular congestion. REVIEW OF SYSTEMS: She was positive for chills, fatigue, decreased appetite, a 20 pound weight gain in a month, shortness of breath that was worse with exertion. Denied any chest pain, abdominal pain, constipation, diarrhea, burning or hurting with urination. PHYSICAL EXAMINATION: VITAL SIGNS: On arrival, she had a temperature of 96.9 degrees, pulse 93, respirations 18, blood pressure 190/82, saturating 95% on room air. GENERAL: This is a 63-year-old, female who is lying in the bed. Answers questions appropriately. HEENT: Normocephalic, atraumatic. Normal ENT inspection. Oropharynx and nares are clear. Eyes: Pupils are equal, round, and reactive to light and accommodation. Extraocular movements are intact. NECK: Normal inspection. Normal range of motion. LUNGS: Clear to auscultation bilaterally with equal lung expansion and chest wall movement. HEART: With regular rate and rhythm. No murmurs, rubs, or gallops. She is noted to have 1+ pitting edema to her bilateral lower extremities. ABDOMEN: Soft, nontender, nondistended. Bowel sounds are present x4 quadrants. NEUROLOGIC: The cranial nerves 2-12 appear grossly intact. ASSESSMENT: 1. Acute congestive heart failure exacerbation. 2. Malignant hypertension. 3. Chronic kidney disease stage 4. 4. Weight gain of 20 pounds over the last month. PLAN: She was admitted to the medical unit at [facility]. Placed on daily weights, telemetry, healthy heart diet. Continue her home medications as previously identified. We will place her on Lasix 40 mg IV b.i.d. We will place her on patterned blood sugars with sliding scale insulin, Zofran 4 mg IV q.4 hours p.r.n. We will consult Dr. Sevilla and recheck CBC and BMP in the a.m. Further orders after being seen by attending and by personnel consultant. Dictated by JA Nugent for Jackson Jacome MD cc: JA Nugent MD Moses Awoniyi, MD
[2018-08-02] MEDS: HUMALOG (PARKWAY) SUBQ SCH ×3 (11:41→22:35)
--- NOTE | 2018-08-02 12:25 | HISTORY AND PHYSICAL ---
ADDENDUM: I saw the patient [id number] and fully agree with the assessment and plan of nurse practitioner, Mavis Montejo. This is a 63-year-old, female who has a history of stage 5 chronic kidney disease. She presented to the emergency room with shortness of breath and we believe she has fluid overload that is evident with her chest x-ray that shows severe cardiomegaly and pulmonary vascular congestion. We are going to give her IV furosemide and obtain consultation with nephrology with whom she is already following and they are getting her ready for hemodialysis in the near future. cc: Jackson Jacome MD
[2018-08-02] MEDS: ZOCOR PO SCH (22:34)
[2018-08-02] MEDS: LOVENOX SUBQ SCH (22:38)
[2018-08-03] MEDS: CATAPRES PO SCH ×4 (05:20→20:15)
[2018-08-03] MEDS: HUMALOG (PARKWAY) SUBQ SCH ×4 (06:32→20:15)
[2018-08-03 06:55] LABS: BASO# 0.01 X1000 (0.0-0.2); BASO% 0.1 % (0.0-0.8); EOS# 0.39 X1000 (0.0-0.7); EOS% 5.3 % (0.0-10.0); HEMATOCRIT 26.3 % (37.0-47.0); HEMOGLOBIN 7.7 g/dL (12.0-16.0); IMM GRAN# 0.04 X1000 (0.0-0.04); IMM GRAN% 0.5 % (0.0-0.5); LYMPH# 1.55 X1000 (1.2-3.4); LYMPH% 20.9 % (20.5-51.1); MCH 27.8 PG (27-31); MCHC 29.3 g/dL (33-37); MCV 94.9 FL (81-99); MONO# 0.46 X1000 (0.11-0.59); MONO% 6.2 % (1.7-9.3); MPV 11.1 FL (7.4-10.4); NEUT# 4.96 X1000 (1.4-6.5); PLT 152 X1000 (130-400); RBC 2.77 XMIL (4.2-5.4); RDW 18.3 % (11.5-14.5); WBC 7.41 X1000 (4.8-10.8)
[2018-08-03 07:23] LABS: CREATININE 3.8 mg/dL (0.5-0.9); POTASSIUM 5.6 mmol/L (3.5-5.1)
--- NOTE | 2018-08-03 08:44 | NEPHROLOGY CONSULTATION ---
DATE: 08/03/2018 REASON FOR CONSULTATION: Uremic symptoms and volume overload. HISTORY OF PRESENT ILLNESS: Ms. Rodriguez is a 63-year-old, woman who is well known to us. She has diabetes, hypertension, obesity, anemia, heart failure, etc., known chronic kidney disease stage 4 to 5. We have been following her for several years and her renal function has been remarkably stable with a creatinine of approximately 4. She has a fistula in the left upper arm. Her last evaluation was on June 30 at which time she was at her baseline. She states that for about 1 week, she had worsening shortness of breath and lower extremity swelling. She also had anorexia, perhaps some weight loss, episodic vomiting. No diarrhea. She had an episode of chills but no fever. Shortness of breath with PND and orthopnea, these were the symptoms that brought her to the emergency room. Her evaluation found her creatinine roughly at baseline. She has been treated with IV diuretics and she is net -3 L thus far. Shortness of breath is improved. She has noted some epistaxis as she has been wearing oxygen. PAST MEDICAL HISTORY: As above. HOME MEDICATIONS: Include insulin, allopurinol, amlodipine, aspirin, sodium bicarbonate, simvastatin, clonidine, hydralazine, furosemide. ALLERGIES: None. SOCIAL HISTORY: She is and lives with her . No alcohol or tobacco. FAMILY HISTORY: Otherwise noncontributory. REVIEW OF SYSTEMS: Otherwise noncontributory. PHYSICAL EXAMINATION: Vital Signs: Blood pressure 161/59, heart rate 85, respirations 20, afebrile. General: She is an obese, black female sitting erect, in no distress. Skin: Warm and dry. HEENT: Conjunctivae are pink. Pupils are equal. Oropharynx is clear. Neck: Supple. Trachea is midline. Neck vein distention was not appreciated. Cardiovascular: PMI was difficult to palpate. Regular rate and rhythm with a prominent 3/6 systolic murmur loudest at the upper sternal border. No rubs. Lungs: Have equal breath sounds. No crackles or wheezes. Abdomen: Soft, nontender. Bowel sounds are present. Extremities: Have 2 to 3+ edema. No clubbing or cyanosis. Neurologic: Examination is grossly nonfocal. IMPRESSION: Chronic kidney disease stage 4 to 5. She has multiple symptoms that are likely uremic including anorexia, weakness, fatigue, shortness of breath, fluid retention, etcetera. Her creatinine is at her historical baseline. She is responding well to diuretics so we will observe over the next 24 to 48 hours. However, if her symptoms do not improve, then she may need to initiate hemodialysis. She understands this. She does have moderate hyperkalemia that is stable. No intervention. Her acid-base balance is acceptable. Anemia is worse. We will check iron stores, B12, and folate. cc: Renzo Sevilla MD
[2018-08-03] MEDS: ASPIRIN EC PO SCH ×2 (09:46→20:15)
[2018-08-03] MEDS: LASIX IV SCH ×2 (09:47→20:14)
[2018-08-03] MEDS: SODIUM BICARBONATE PO SCH ×2 (09:47→20:15)
[2018-08-03] MEDS: APRESOLINE PO SCH ×3 (09:47→16:14)
[2018-08-03] MEDS: NORVASC PO SCH (09:47)
[2018-08-03] MEDS: ZYLOPRIM PO SCH ×2 (09:48→20:15)
--- NOTE | 2018-08-03 16:31 | PROGRESS NOTE ---
DATE: 08/03/2018 SUBJECTIVE: The patient has no new complaints. States that overall she is feeling a little bit better. PHYSICAL EXAMINATION: Temperature 98, pulse 90, respiratory 20, BP 160/87.General: The patient is an obese female who currently is in no respiratory distress, sitting on side of bed, very pleasant to talk with. HEENT: Normocephalic. Neck: Supple. CARDIOVASCULAR: Regular rate. Chest: Clear. Abdomen: Soft, obese. Extremities: Moves all extremities. ASSESSMENT: 1. Acute congestive heart failure. 2. Chronic kidney disease. 3. Malignant hypertension. 4. Weight gain. PLAN: We will continue Lasix. She does have anemia of chronic disease. We will continue to follow her kidney function. Dr. Sevilla has seen in consultation and will follow. cc: Johny Kohler MD
[2018-08-03] MEDS: LOVENOX SUBQ SCH (20:14)
[2018-08-03] MEDS: ZOCOR PO SCH (20:15)
[2018-08-04] MEDS: CATAPRES PO SCH ×5 (02:12→21:00)
[2018-08-04] MEDS: LOVENOX SUBQ SCH ×2 (02:12→21:00)
[2018-08-04] MEDS: HUMALOG (PARKWAY) SUBQ SCH ×4 (06:33→20:59)
[2018-08-04 06:54] LABS: HEMATOCRIT 27.5 % (37.0-47.0); HEMOGLOBIN 8.1 g/dL (12.0-16.0); MCH 27.9 PG (27-31); MCHC 29.5 g/dL (33-37); MCV 94.8 FL (81-99); MPV 10.6 FL (7.4-10.4); RBC 2.9 XMIL (4.2-5.4); RDW 18.5 % (11.5-14.5); WBC 7.54 X1000 (4.8-10.8)
[2018-08-04 07:19] LABS: ALBUMIN 3.5 g/dL (3.5-5.0); CALCIUM 9.3 mg/dL (8.8-10.2); CREATININE 3.9 mg/dL (0.5-0.9); PHOSPHORUS 3.9 mg/dL (2.7-4.5); POTASSIUM 5.9 mmol/L (3.5-5.1)
[2018-08-04] MEDS: LASIX IV SCH ×2 (09:27→20:59)
[2018-08-04] MEDS: APRESOLINE PO SCH ×3 (09:27→17:15)
[2018-08-04] MEDS: SODIUM BICARBONATE PO SCH ×2 (09:27→20:59)
[2018-08-04] MEDS: NORVASC PO SCH (09:27)
[2018-08-04] MEDS: ZYLOPRIM PO SCH ×2 (09:27→20:58)
[2018-08-04] MEDS: ASPIRIN EC PO SCH ×2 (09:27→20:59)
[2018-08-04] MEDS ORDERED: D50W SYRINGE IV ONE (11:12)
[2018-08-04] MEDS ORDERED: HUMULIN R (PARKWAY) IV ONE (11:13)
[2018-08-04] MEDS ORDERED: ALBUTEROL 0.5% INH CONC FOR HYPERKALEMIA INH ONE (11:14)
--- NOTE | 2018-08-04 11:41 | NEPHROLOGY PROGRESS NOTE ---
DATE: 08/04/2018 TIME SEEN: 0745. SUBJECTIVE: Ms. Rodriguez is resting quietly on the side of the bed. She states that she is feeling much better today. OBJECTIVE: Vital Signs: Her most recent vital signs are last temperature 97.4 degrees, blood pressure 163/69, heart rate 89, respirations are 20. She is on 2 L nasal cannula. Last recorded saturation 100%. She has had 1860 in. She has had 4.8 L to void. Laboratory Data: Sodium 146, potassium is 5.9, chloride is 107, CO2 27, BUN 67, creatinine 3.9, glucose 118, patient's anion gap is 12, her calcium is 9.3, phosphorus 3.9, albumin of 3.5. The patient has a white count of 7.54, hemoglobin 8.1, hematocrit 27.5, with a platelet count of 156,000. Total iron percent saturation is 26%, her ferritin is currently pending. Physical Examination: General: This is a 63-year-old, female resting quietly in bed. She appears chronically ill. No acute distress. Skin is warm and dry. HEENT: Normocephalic, atraumatic. Conjunctivae are pale pink. She has MEGA. Mucous membranes are dry. Neck: Supple. Trachea midline. No evidence of JVD in the upright position. Cardiovascular: She is regular rate and rhythm. She has a systolic murmur auscultated. No gallop. Lungs: Diminished breath sounds at the posterior bases. Otherwise, clear to auscultation anterior. Equal excursion, on O2. Abdomen: Soft, nontender, large, round. Positive bowel sounds present. Extremities: Have 2 to 3+ lower extremity edema. No clubbing or cyanosis. Neurological: She is awake and alert to person and to place and most recent events. ASSESSMENT AND PLAN: 1. Chronic kidney disease stage 4-5. Patient remains at her historical creatinine baseline. She has continued to receive diuretic therapy. Her creatinine remains stable at the 3.7 to 3.9 range. 2. Electrolytes. Patient has mild hyperkalemia this morning. We will evaluate her current diet. We will plan to give D50, insulin, and albuterol. 3. Acid-base balance. She remains on sodium bicarbonate orally. 4. Anemia. This is low but stable. 5. Fluid volume overload. Patient is currently receiving Lasix. No indications for further intervention. I would like to thank you for allowing us to follow with this patient. Dictated by JA Franks for Renzo Sevilla MD cc: JA Franks MD [facility]
[2018-08-04 12:54] LABS: FERRITIN 628 ng/mL (13-150)
[2018-08-04] MEDS: ZOCOR PO SCH (20:58)
--- NOTE | 2018-08-04 22:48 | PROGRESS NOTE ---
DATE: 08/04/2018 SUBJECTIVE: The patient has no complaints. States overall she is feeling fine. OBJECTIVE: Temperature 97.6 degrees, pulse 81, respiratory 18, BP 141/49. General: The patient is pleasant to talk with. She is sitting on side of the bed. HEENT: Normocephalic. Neck supple. CV: Regular rate. Chest clear. Abdomen soft, obese. Extremities: Moves all extremities. ASSESSMENT: 1. Hyperkalemia. The patient's potassium continues to elevate slightly today. 2. Anemia of chronic disease. 3. Congestive heart failure with exacerbation. 4. Malignant hypertension. PLAN: We will continue current treatment. Continue to follow. Appreciate Nephrology's input. Further orders as needed. cc: Johny Kohler MD
[2018-08-05] MEDS: CATAPRES PO SCH ×3 (04:32→09:44)
[2018-08-05] MEDS: HUMALOG (PARKWAY) SUBQ SCH (06:24)
[2018-08-05 07:17] LABS: ALBUMIN 3.4 g/dL (3.5-5.0); CALCIUM 8.8 mg/dL (8.8-10.2); CREATININE 4.3 mg/dL (0.5-0.9); POTASSIUM 5.8 mmol/L (3.5-5.1)
[2018-08-05 08:02] VITALS: BP 162/57
[2018-08-05] MEDS ORDERED: HUMALOG (PARKWAY) IV ONE (08:42)
[2018-08-05] MEDS ORDERED: D50W SYRINGE IV ONE (08:42)
[2018-08-05] MEDS ORDERED: ALBUTEROL 0.5% INH CONC FOR HYPERKALEMIA INH ONE (08:42)
[2018-08-05] MEDS: NORVASC PO SCH (08:50)
[2018-08-05] MEDS: LASIX IV SCH (08:50)
[2018-08-05] MEDS: ASPIRIN EC PO SCH (08:50)
[2018-08-05] MEDS: SODIUM BICARBONATE PO SCH (08:50)
[2018-08-05] MEDS: ZYLOPRIM PO SCH (08:50)
[2018-08-05] MEDS: APRESOLINE PO SCH (08:50)
--- NOTE | 2018-08-05 18:05 | NEPHROLOGY PROGRESS NOTE ---
DATE: 08/05/2018 SUBJECTIVE: Ms. Rodriguez is doing well. She has been able to be ambulatory in the room. No shortness of breath, nausea, or vomiting. OBJECTIVE: Vital Signs: Blood pressure 162/57, heart rate 92, respirations 21, afebrile. General: No acute distress. Skin: Warm and dry. HEENT: Conjunctivae are pink. Neck: Neck veins are not distended. Heart: Regular with a gallop. Lungs: Equal. No crackles. Abdomen: Obese, soft, nontender. Bowel sounds present. Extremities: There is 1+ edema. No clubbing or cyanosis. IMPRESSION: Chronic kidney disease stage 5. She is at her historical baseline. Electrolytes are acceptable, though she does have modest hyperkalemia. Okay for discharge from my perspective. We will see her in the office as scheduled within the next 2 weeks. We can address her anemia and her hyperkalemia as an outpatient as appropriate. cc: Renzo Sevilla MD
--- NOTE | 2018-08-05 22:17 | DISCHARGE SUMMARY ---
ADMISSION DATE: 08/01/2018 DISCHARGE DATE: 08/05/2018 DISCHARGE DIAGNOSES: 1. Acute congestive heart failure exacerbation, resolved. 2. Malignant hypertension, resolved. 3. Chronic kidney disease stage 4 to 5, stable. 4. Hyperkalemia. 5. Volume overload, resolved. The patient has diuresed a net negative of 6260 mL. CONSULTS: Dr. Renzo Sevilla of Nephrology. HOSPITAL COURSE: Ms. Rodriguez presented to the emergency room with 1 week of increasing shortness of breath, lower extremity edema, as well as symptoms indicative of uremia including anorexia, fatigue, shortness of breath, weakness and fluid retention. She was diuresed for a net negative of 6 L. Today she denies any shortness of breath. She has no complaints. In fact, she states she feels better than she has in quite some time. Blood pressures are now in the 140s to 160s over 40s to 50s. She was hyperkalemic, for which she was treated with insulin, D50 and albuterol nebulizers. She is being discharged. Potassium has averaged 5.6, which is consistent with her levels since 05/2018. DISCHARGE PHYSICAL EXAMINATION: Vital signs: Blood pressure is 160/57 with a heart rate of 92, respirations are 20, temperature is 97.6 degrees with O2 saturations of 100%. Cardiovascular: Regular rate and rhythm. S1 and S2 are appreciated. She has no lower extremity edema. She does have a 1/6 to 2/6 systolic murmur. No gallop. She has no evidence of JVD. She continues to have lower extremity edema, with peripheral pulses palpable x4 extremities. Pulmonary: Breath sounds are diminished at the bases. Chest rises and falls symmetrically with respiration. She has no increased work of breathing noted. Gastrointestinal: Abdomen is soft, nontender, nondistended with bowel sounds in all 4 quadrants. Neurologic: She is alert and oriented. DISCHARGE MEDICATIONS: 1. Simvastatin 30 mg p.o. at bedtime. 2. Sodium bicarbonate 650 mg p.o. b.i.d. 3. Metoprolol succinate 25 mg p.o. daily. 4. Hydralazine 100 mg p.o. t.i.d. 5. Lasix 60 mg p.o. daily. 6. Clonidine 0.3 mg p.o. b.i.d. 7. Aspirin 325 p.o. daily. 8. Norvasc 10 mg p.o. daily. 9. Allopurinol 100 mg p.o. b.i.d. 10. Humulin 70/30, 15 units subcutaneously b.i.d. DISCHARGE INSTRUCTIONS: 1. She is to follow up with Dr. Sevilla on 08/24 at 3 p.m. At that time she will have labs drawn. 2. She has been instructed to call to be seen sooner or return to the ER for any syncope, dizziness, chest pain, palpitations, increasing shortness of breath, temperature greater than 101 degrees, any nausea, vomiting, diarrhea, constipation, black or bloody vomitus or stools, any hematuria, dysuria, or any questions or concerns that she may have. 3. She is being discharged home in stable condition with family members. 4. We did discuss with the patient her persistent hyperkalemia. She was given copies of foods that are high in potassium to avoid, and foods that are low in potassium that she can eat freely. She did voice understanding for this. This was a greater than 30-minute discharge. Dictated by JA Garcia for Johny Kohler MD This chart was documented by, JA Garcia and accurately reflects the services performed, treatment plan and medical decisions as attested by the providers signature Johny Kohler MD. cc: JA Garcia MD
--- NOTE | 2018-08-06 01:56 | DISCHARGE SUMMARY ---
ADMISSION DATE: 08/01/2018 DISCHARGE DATE: 08/05/2018 ADDENDUM: Patient seen and examined by myself. Full note dictated and discussed with nurse practitioner. On discharge, patient is much improved. She is noted to have some mild hyperkalemia and this will be followed up outpatient with Dr. Sevilla. She will be discharged home. Discussed with her dietary restrictions. cc: Johny Kohler MD
== END 2018-08-05 11:51 | disposition home health service (06) | DRG 292 ==
LOC: P.ED 16:15 → P.MEDSURG 20:06 → SUATTDRO 20:06
PROVIDERS: ATTEND Family Medicine
CPT/HCPCS: 71010; 71045; 80048; 80053; 80069; 81001; 82607; 82728; 82746; 82948; 83540; 83550; 83735; 83880; 84132; 85025; 85027; 87275; 87276; 87804; 93005; 94640; 94761; 96374; 99285; A9270; J1650; J1815; J1940; XXXXX